=== PATIENT | female | born 2000 | race Caucasian/White ===

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

== ENCOUNTER 2022-02-09 19:45 | Outpatient (CLI) | payer OTHER ==
[2022-02-09] MEDS ORDERED: PRENATAL + DHA1 EAC1 PO (20:19)
[2022-02-10] MEDS ORDERED: CLEOCIN HCL300 MG PO (07:06)
== END 2022-02-10 07:35 | disposition home or self-care (01) ==
LOC: OBS/DEL 19:45
PROVIDERS: ATTEND Specialist
DX: O26.893 Other specified pregnancy related conditions, third trimester (principal); O23.593 Infection of other part of genital tract in pregnancy, third trimester; Z3A.32 32 weeks gestation of pregnancy

== ENCOUNTER 2022-03-18 09:10 | Inpatient (IN) | payer OTHER ==
[~2022-03-18] VITALS: Ht 154.9 cm; Wt 84.8 kg
[~2022-03-18 09:10] MED LIST: CLEOCIN HCL300 MG PO; PRENATAL + DHA1 EAC1 PO
== END 2022-04-10 14:36 | disposition home or self-care (01) | DRG 807 ==
LOC: OB/GYN 04-03 09:10 → LDR 04-08 05:14 → OB/GYN 04-08 05:14
PROVIDERS: ADMIT Specialist; ATTEND Specialist
PROC: 10E0XZZ Delivery of Products of Conception, External Approach (ICD-10-PCS; principal; 2022-04-08)
PROC: 0HQ9XZZ Repair Perineum Skin, External Approach (ICD-10-PCS; 2022-04-08)
PROC: 4A1HXCZ Monitoring of Products of Conception, Cardiac Rate, External Approach (ICD-10-PCS; 2022-04-08)
PROC: 3E033VJ Introduction of Other Hormone into Peripheral Vein, Percutaneous Approach (ICD-10-PCS; 2022-04-08)
PROC: 3E0P7VZ Introduction of Hormone into Female Reproductive, Via Natural or Artificial Opening (ICD-10-PCS; 2022-04-08)
DX: O70.1 Second degree perineal laceration during delivery (principal); Z37.0 Single live birth; Z3A.40 40 weeks gestation of pregnancy; Z20.822 Contact with and (suspected) exposure to COVID-19